=== PATIENT | female | born 1940 | race Caucasian/White ===

== ENCOUNTER → 2023-08-31 13:10 | Outpatient (REF) | payer OTHER, SELFPAY ==
[2023-08-31 13:40] LABS: Blood Urea Nitrogen 15 mg/dl (7-17); Calcium 8.6 mg/dl (8.4-10.2); Carbon Dioxide 27 mmol/L (22-30); Chloride 106 mmol/L (98-107); Glucose 136 mg/dl (70-99); Potassium 4.3 mmol/L (3.5-5.1); Sodium 136 mmol/L (135-145); eGFR > 60.00
[2023-08-31 13:45] LABS: Hematocrit 35.4 % (37.0-47.0); Hemoglobin 11.3 g/dL (12.0-16.0); Mean Corp Hgb Conc. 31.9 g/dL (33.0-37.0); Mean Corpuscular Hgb 29.9 pg (27.0-31.0); Mean Corpuscular Volume 93.7 fL (81.0-99.0); Mean Platelet Volume 11.8 fL (7.4-10.4); Platelet Count 238 10^3/uL (130-400); Red Blood Cell Count 3.78 10^6/uL (4.20-5.40); Red Cell Dist. Width 14.4 % (11.5-14.5); White Blood Cell Count 5.2 10^3/uL (4.8-10.8)
== END ==
LOC: OLABWHC 13:10
PROVIDERS: ATTENDING PHYSICIAN Family Medicine
DX: I63.9 Cerebral infarction, unspecified (principal); I69.354 Hemiplegia and hemiparesis following cerebral infarction affecting left non-dominant side; I10 Essential (primary) hypertension; Z79.3 Long term (current) use of hormonal contraceptives
CPT/HCPCS: 36415; 80048; 85027

== ENCOUNTER → 2023-09-09 11:04 | Outpatient (REF) | payer OTHER, SELFPAY ==
[2023-09-09 11:32] LABS: Hematocrit 33.6 % (37.0-47.0); Mean Corp Hgb Conc. 32.7 g/dL (33.0-37.0); Mean Corpuscular Hgb 29.3 pg (27.0-31.0); Mean Corpuscular Volume 89.6 fL (81.0-99.0); Mean Platelet Volume 11.7 fL (7.4-10.4); Platelet Count 278 10^3/uL (130-400); Red Blood Cell Count 3.75 10^6/uL (4.20-5.40); Red Cell Dist. Width 13.7 % (11.5-14.5); White Blood Cell Count 7.8 10^3/uL (4.8-10.8)
[2023-09-09 11:47] LABS: Blood Urea Nitrogen 18 mg/dl (7-17); Calcium 9.1 mg/dl (8.4-10.2); Carbon Dioxide 31 mmol/L (22-30); Chloride 95 mmol/L (98-107); Glucose 133 mg/dl (70-99); Potassium 4.5 mmol/L (3.5-5.1); Sodium 134 mmol/L (135-145); eGFR > 60.00
== END ==
LOC: OLABWHC 11:04
PROVIDERS: ATTENDING PHYSICIAN Family Medicine
DX: Z93.1 Gastrostomy status (principal); E66.9 Obesity, unspecified; E78.5 Hyperlipidemia, unspecified
CPT/HCPCS: 36415; 80048; 85027

== ENCOUNTER → 2023-09-16 09:33 | Outpatient (REF) | payer OTHER, SELFPAY ==
[2023-09-16 09:59] LABS: Hematocrit 35.2 % (37.0-47.0); Hemoglobin 11.5 g/dL (12.0-16.0); Mean Corp Hgb Conc. 32.7 g/dL (33.0-37.0); Mean Corpuscular Hgb 29.1 pg (27.0-31.0); Mean Corpuscular Volume 89.1 fL (81.0-99.0); Mean Platelet Volume 11.4 fL (7.4-10.4); Platelet Count 261 10^3/uL (130-400); Red Blood Cell Count 3.95 10^6/uL (4.20-5.40); Red Cell Dist. Width 13.7 % (11.5-14.5); White Blood Cell Count 8.2 10^3/uL (4.8-10.8)
[2023-09-16 11:02] LABS: ALT (SGPT) 21 U/L (0-35); AST (SGOT) 46 U/L (14-36); Albumin 3.2 g/dl (3.5-5.0); Alkaline Phosphatase 106 U/L (38-126); Blood Urea Nitrogen 15 mg/dl (7-17); Calcium 8.9 mg/dl (8.4-10.2); Carbon Dioxide 27 mmol/L (22-30); Chloride 101 mmol/L (98-107); Glucose 156 mg/dl (70-99); Potassium 4.1 mmol/L (3.5-5.1); Sodium 135 mmol/L (135-145); Total Bilirubin 0.6 mg/dl (0.2-1.3); Total Protein 6.6 g/dl (6.3-8.2); eGFR > 60.00
== END ==
LOC: OLABWHC 09:33
PROVIDERS: ATTENDING PHYSICIAN Family Medicine
DX: D64.9 Anemia, unspecified (principal); E66.9 Obesity, unspecified; Z93.1 Gastrostomy status
CPT/HCPCS: 36415; 80053; 85027

== ENCOUNTER 2023-09-17 17:24 | Emergency (ER) | payer OTHER, SELFPAY ==
[2023-09-17 17:41] VITALS: BP 130/75
[2023-09-17 17:42] VITALS: BP 130/75
--- NOTE | 2023-09-17 17:42 | ED.GENMED ---
History of Present Illness
General
Chief Complaint: Catheter/Tube Problem
Time Seen by Provider: 09/17/23 17:41
History of Present Illness
History of Present Illness:
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 She then had worsening hemorrhagic conversion but then 2 weeks later was placed on Eliquis
for A-fib. PEG tube was placed 08/05/2023.
EXAM:
GENERAL: The patient had a recent stroke
HEENT: Moist oral mucosa
CARDIOVASCULAR: No murmurs, normal heart rate and rhythm, No chest wall tenderness
PULMONARY: No respiratory distress, breath sounds are clear and equal
ABDOMEN: Soft with no peritoneal signs, no tenderness
NEUROLOGIC: Rightward gaze preference, she has left-sided weakness
PSYCHIATRIC: Fair insight and judgment but patient is a limited historian at times
EXTREMITIES: Nontender extremities
ED COURSE:
6 PM: I initially evaluated patient
NUMBER AND COMPLEXITY OF PROBLEMS ADDRESSED AT THE ENCOUNTER
� Chronic conditions affecting care: A-fib, high blood pressure, diabetes, hypothyroidism
� Acute Exacerbation and/or Progression of Chronic Illness: This is an acute problem
� Differential Diagnosis includes: Feeding tube dislodged
AMOUNT AND/OR COMPLEXITY OF DATA TO BE REVIEWED AND ANALYZED
� I performed an independent evaluation of and my interpretation is:
EKG:
CT:
X-rays: X-ray shows confirmation of good placement
Laboratory Studies:
Other:
� Review of other/old records: See HPI above
� Clinical information was obtained by an independent historian: I spoke to the nurse at [facility] who indicates the patient had a Armenian G-tube placed
� Prescriptions/Medications Considered but not given:
� Further testing considered but not performed:
RISK OF COMPLICATIONS AND/OR MORBIDITY OR MORTALITY OF PATIENT MANAGEMENT
� Social determinants of health affecting care: Currently staying at [facility]
� Discussion with other providers: I spoke to Dr. Bryan who feels that 6 weeks since original placement would be a reasonable timeframe to try placement here
� Escalation of care including admission/observation vs risk of discharge considered: 18 Armenian tube was placed without difficulty. Will discharge back to [facility] as of 7:20 PM
Past History
Past History
ED Past Medical History: NIDDM and Hypothyroidism
Social History
Personal: Single
Family History
Family History: Other
Phy Exam
Physical Exam
Physical Exam:
See HPI
Course
Orders/Labs/Results
Orders:
Orders
09/17/23 18:20
Tube Check [CR Cont Inj Eval Tube(by Rad)] Urgent
Comment:
Reason For Exam: replaced new G tube in ED
Vital Signs
Initial and Last Documented VS:
Initial Vital Signs
Temp Pulse Resp BP Pulse Ox
97.9 F 89 16 130/75 98
09/17/23 17:41 09/17/23 17:41 09/17/23 17:41 09/17/23 17:41 09/17/23 17:41
Last Documented Vital Signs
Temp Pulse Resp BP Pulse Ox
97.9 F 89 16 130/75 98
09/17/23 17:41 09/17/23 17:41 09/17/23 17:41 09/17/23 17:41 09/17/23 17:41
Procedures
Other
Indication for procedure:: Feeding tube dislodged
Procedure completed by: Id, Dr. Roman
Consent form signed: No
Additional Procedure:
Verbal consent obtained. An 18 Armenian tube was placed in 1 attempt without difficulty. Confirmation study shows good placement of tube.
*Critical Care Note
Total Time (30-74mins, 75-104mins- exclusive of procedures): Not Applicable
ED Attending Note
-
Portions of this chart may have been created with voice recognition software.� Occasional wrong word or��sound alike� substitutions may have occurred due to the inherent limitations of voice recognition software.
Discharge Plan
Departure
Patient Disposition: Home (Routine Discharge)
Date of Disposition: 09/17/23
Time of Disposition: 19:15
Patient with high blood pressure during this ER visit?: Yes
Discharge Problem:
Feeding tube dysfunction
Prescriptions:
No Action
sennosides [senna] 8.6 mg Tablet
8.6 mg feeding tube DAILY
magnesium hydroxide [Milk of Magnesia] 400 mg/5 mL Suspension
2,400 mg feeding tube HSPRN PRN (Reason: if no bm by 2nd day)
Fleet Enema 19-7 gram/118 mL Enema
118 ml AK Q96H PRN (Reason: if no bm by 4th day)
insulin lispro [Humalog KwikPen Insulin] 100 unit/mL Insulin Pen
0 unit SC QPM
Rx Instructions:
150-199=1unit, 200-249=3units, 250-299=5 units, 300-349=7units
Balmex Adult Care 11.3 % Cream
1 applic TOPICAL DAILYPRN PRN (Reason: aftr incontinet care)
Balmex Adult Care 11.3 % Cream
1 applic TOPICAL DAILY
acetaminophen 325 mg tablet
650 mg feeding tube Q6HPRN PRN (Reason: mild pain)
guaifenesin [Siltussin SA] 100 mg/5 mL liquid
200 mg feeding tube QID
Humulin N NPH Insulin KwikPen 100 unit/mL (3 mL) insulin pen
18 unit SC HS
melatonin 5 mg tablet
5 mg feeding tube HS
docusate sodium 50 mg/5 mL Liquid
100 mg feeding tube BID Qty: 473 0RF
ipratropium bromide 0.02 % Solution
0.5 mg inhalation R BIDPRN PRN (Reason: wheezing) Qty: 75 0RF
bisacodyl 10 mg Suppository
10 mg AK HSPRN PRN (Reason: if no BM with oral bisacodyl) Qty: 30 0RF
Eliquis 5 mg Tablet
5 mg feeding tube BID Qty: 60 0RF
atorvastatin 80 mg Tablet
80 mg feeding tube QPM Qty: 30 0RF
Humulin N NPH Insulin KwikPen 100 unit/mL (3 mL) Insulin Pen
12 unit SC DAILY@0730 Qty: 15 0RF
metoprolol tartrate 25 mg Tablet
25 mg feeding tube Q12 Qty: 30 0RF
sodium chloride 1,000 mg Tablet,Soluble
1,000 mg feeding tube DAILY Qty: 30 0RF
levothyroxine 50 mcg Tablet
50 mcg feeding tube DAILY@0700 Qty: 30 0RF
Referrals:
Davie Waldron MD [Family Provider] -
Activity Restrictions/Additional Instructions:
I placed an 18 Armenian tube and the contrast study shows that the tube is in good position for immediate use. Return here if worse.
Interventions
Interventions:
*Risk Screen - Suicide Last Done: 09/17/23 17:41
*General Assessment Last Done: 09/17/23 17:41
*Neglect/Abuse Screening Last Done: 09/17/23 17:41
*ED COVID-19 Vaccine History Last Done: 09/17/23 17:41
[2023-09-17 21:24] VITALS: BP 90/77
[2023-09-17 21:29] LABS: Glucose - Point of Care 154 mg/dl (70-99)
== END 2023-09-17 21:45 | disposition home or self-care (01) ==
LOC: EMR 17:24
PROVIDERS: EMERGENCY PHYSICIAN Emergency Medicine; FAMILY PHYSICIAN Family Medicine
DX: K94.23 Gastrostomy malfunction (principal); E11.9 Type 2 diabetes mellitus without complications; E03.9 Hypothyroidism, unspecified; I48.91 Unspecified atrial fibrillation; I10 Essential (primary) hypertension; Z86.73 Personal history of transient ischemic attack (TIA), and cerebral infarction without residual deficits; Z79.01 Long term (current) use of anticoagulants
CPT/HCPCS: 99284; 49465; 82962

== ENCOUNTER → 2023-10-26 09:34 | Outpatient (REF) | payer OTHER, SELFPAY | LOC: RAD 09:34 | PROVIDERS: ATTENDING PHYSICIAN Family Medicine | DX: R13.10 Dysphagia, unspecified (principal) | CPT/HCPCS: 74230; 92611 ==

== ENCOUNTER → 2023-10-26 11:46 | Outpatient (REF) | payer OTHER, SELFPAY ==
[2023-10-26 12:59] LABS: Blood Urea Nitrogen 12 mg/dl (7-17); Calcium 9.1 mg/dl (8.4-10.2); Carbon Dioxide 30 mmol/L (22-30); Chloride 103 mmol/L (98-107); Glucose 113 mg/dl (70-99); Potassium 4.1 mmol/L (3.5-5.1); Sodium 137 mmol/L (135-145); eGFR > 60.00
== END ==
LOC: OLABWHC 11:46
PROVIDERS: ATTENDING PHYSICIAN Family Medicine
DX: Z79.01 Long term (current) use of anticoagulants (principal); E78.5 Hyperlipidemia, unspecified
CPT/HCPCS: 36415; 80048

== ENCOUNTER → 2023-11-13 11:07 | Outpatient (REF) | payer OTHER, SELFPAY ==
[2023-11-13 11:26] LABS: Hematocrit 34.6 % (37.0-47.0); Hemoglobin 11.2 g/dL (12.0-16.0); Mean Corp Hgb Conc. 32.4 g/dL (33.0-37.0); Mean Corpuscular Hgb 27.8 pg (27.0-31.0); Mean Corpuscular Volume 85.9 fL (81.0-99.0); Mean Platelet Volume 10.5 fL (7.4-10.4); Platelet Count 251 10^3/uL (130-400); Red Blood Cell Count 4.03 10^6/uL (4.20-5.40); Red Cell Dist. Width 14.2 % (11.5-14.5); White Blood Cell Count 6.6 10^3/uL (4.8-10.8)
[2023-11-13 12:07] LABS: Blood Urea Nitrogen 11 mg/dl (7-17); Carbon Dioxide 27 mmol/L (22-30); Chloride 102 mmol/L (98-107); Glucose 151 mg/dl (70-99); Potassium 4.4 mmol/L (3.5-5.1); Sodium 136 mmol/L (135-145); eGFR > 60.00
== END ==
LOC: OLABWHC 11:07
PROVIDERS: ATTENDING PHYSICIAN Family Medicine
DX: Z93.1 Gastrostomy status (principal); D64.9 Anemia, unspecified; E11.9 Type 2 diabetes mellitus without complications
CPT/HCPCS: 36415; 80048; 85027

== ENCOUNTER → 2023-11-30 11:11 | Outpatient (REF) | payer OTHER, SELFPAY ==
[2023-11-30 11:45] LABS: Blood Urea Nitrogen 12 mg/dl (7-17); Calcium 9.1 mg/dl (8.4-10.2); Carbon Dioxide 30 mmol/L (22-30); Chloride 101 mmol/L (98-107); Glucose 149 mg/dl (70-99); Potassium 4.3 mmol/L (3.5-5.1); Sodium 139 mmol/L (135-145); eGFR > 60.00
== END ==
LOC: OLABWHC 11:11
PROVIDERS: ATTENDING PHYSICIAN Family Medicine
DX: I10 Essential (primary) hypertension (principal); E11.00 Type 2 diabetes mellitus with hyperosmolarity without nonketotic hyperglycemic-hyperosmolar coma (NKHHC)
CPT/HCPCS: 36415; 80048

== ENCOUNTER → 2024-04-20 13:10 | Outpatient (REF) | payer OTHER, SELFPAY ==
[2024-04-20 14:34] LABS: HDL Cholesterol 24 mg/dl; LDL Cholesterol, Calculated 99 mg/dl; Total Cholesterol 162 mg/dl (50-199); Triglyceride 197 mg/dl (10-149); Very Low Density Lipoprotein 39 mg/dl (0-30)
== END ==
LOC: OLABN 13:10
PROVIDERS: ATTENDING PHYSICIAN Student in an Organized Health Care Education/Training Program
DX: E78.5 Hyperlipidemia, unspecified (principal)
CPT/HCPCS: 36415; 80061

== ENCOUNTER → 2024-05-28 08:06 | Outpatient (REF) | payer OTHER, SELFPAY ==
[2024-05-28 10:37] LABS: % Basophils 0.4 % (0-2); % Eosinophils 0.6 % (0-6); % Immature Granulocytes 0.6 % (0-0.5); % Monocytes 9.2 % (1.7-9.3); % Neutrophils 73.2 % (42.2-75.2); Absolute Eosinophils 0.1 10^3/uL (0-0.7); Absolute Immature Granulocytes 0.1 10^3/uL (0-0.05); Absolute Lymphocytes 1.5 10^3/uL (1.2-3.4); Absolute Monocytes 0.8 10^3/uL (0.1-0.6); Absolute Neutrophils 6.6 10^3/uL (1.4-6.5); Hematocrit 37.1 % (37.0-47.0); Hemoglobin 12.6 g/dL (12.0-16.0); Mean Corpuscular Hgb 32.1 pg (27.0-31.0); Mean Corpuscular Volume 94.6 fL (81.0-99.0); Mean Platelet Volume 10.7 fL (7.4-10.4); Nucleated Red Blood Cells % 0 %; Platelet Count 191 10^3/uL (130-400); Red Blood Cell Count 3.92 10^6/uL (4.20-5.40); Red Cell Dist. Width 12.6 % (11.5-14.5)
[2024-05-28 10:45] LABS: ALT (SGPT) 23 U/L (0-35); AST (SGOT) 30 U/L (14-36); Albumin 3.6 g/dl (3.5-5.0); Alkaline Phosphatase 69 U/L (38-126); Blood Urea Nitrogen 19 mg/dl (7-17); Calcium 9.3 mg/dl (8.4-10.2); Carbon Dioxide 27 mmol/L (22-30); Chloride 107 mmol/L (98-107); Glucose 210 mg/dl (70-99); Magnesium 1.8 mg/dl (1.6-2.3); Potassium 4.5 mmol/L (3.5-5.1); Sodium 142 mmol/L (135-145); Total Bilirubin 0.6 mg/dl (0.2-1.3); Total Protein 6.5 g/dl (6.3-8.2); eGFR > 60.00
[2024-05-28 10:54] LABS: NT-proBNP 591 pg/ml
== END ==
LOC: OLABN 08:06
PROVIDERS: ATTENDING PHYSICIAN Student in an Organized Health Care Education/Training Program
DX: I48.91 Unspecified atrial fibrillation (principal)
CPT/HCPCS: 36415; 80053; 83735; 83880; 85025

== ENCOUNTER → 2024-08-09 10:17 | Outpatient (REF) | payer OTHER, SELFPAY ==
[2024-08-09 12:15] LABS: INR 1.23; PT 15.8 Sec (11.4-14.6)
== END ==
LOC: OLABN 10:17
PROVIDERS: ATTENDING PHYSICIAN Student in an Organized Health Care Education/Training Program
DX: I48.0 Paroxysmal atrial fibrillation (principal)
CPT/HCPCS: 36415; 85610

== ENCOUNTER → 2025-01-16 13:53 | Outpatient (REF) | payer OTHER, SELFPAY | LOC: RAD 13:53 | PROVIDERS: ATTENDING PHYSICIAN Specialist; FAMILY PHYSICIAN Student in an Organized Health Care Education/Training Program | DX: I63.312 Cerebral infarction due to thrombosis of left middle cerebral artery (principal) | CPT/HCPCS: 70450; 93880 ==

== ENCOUNTER → 2025-02-14 10:09 | Outpatient (REF) | payer OTHER, SELFPAY ==
[2025-02-14 10:53] LABS: Hematocrit 38.1 % (37.0-47.0); Hemoglobin 12.2 g/dL (12.0-16.0); Mean Corp Hgb Conc. 32.0 g/dL (33.0-37.0); Mean Corpuscular Volume 93.2 fL (81.0-99.0); Nucleated Red Blood Cells % 0 %; Platelet Count 166 10^3/uL (130-400); Red Cell Dist. Width 12.9 % (11.5-14.5)
[2025-02-14 11:02] LABS: ALT (SGPT) < 10 U/L (0-35); AST (SGOT) 29 U/L (14-36); Albumin 3.5 g/dl (3.5-5.0); Alkaline Phosphatase 49 U/L (38-126); Blood Urea Nitrogen 16 mg/dl (7-17); Calcium 9.0 mg/dl (8.4-10.2); Carbon Dioxide 28 mmol/L (22-30); Chloride 108 mmol/L (98-107); Glucose 66 mg/dl (70-99); Potassium 4.1 mmol/L (3.5-5.1); Sodium 141 mmol/L (135-145); Total Protein 6.3 g/dl (6.3-8.2); Uric Acid 4.7 mg/dl (2.5-6.2); eGFR > 60.00
== END ==
LOC: OLABN 10:09
PROVIDERS: ATTENDING PHYSICIAN Student in an Organized Health Care Education/Training Program
DX: M10.00 Idiopathic gout, unspecified site (principal)
CPT/HCPCS: 36415; 80053; 84550; 85025; 85652

== ENCOUNTER → 2025-04-12 09:22 | Outpatient (REF) | payer OTHER, SELFPAY ==
[2025-04-12 11:13] LABS: TSH 2.08 uIU/ml (0.47-4.68)
== END ==
LOC: OLABN 09:22
PROVIDERS: ATTENDING PHYSICIAN Student in an Organized Health Care Education/Training Program
DX: E03.9 Hypothyroidism, unspecified (principal)
CPT/HCPCS: 36415; 84443

== ENCOUNTER → 2025-05-14 09:05 | Outpatient (REF) | payer OTHER, SELFPAY ==
[2025-05-14 10:53] LABS: Hematocrit 37.5 % (37.0-47.0); Hemoglobin 11.8 g/dL (12.0-16.0); Mean Corp Hgb Conc. 31.5 g/dL (33.0-37.0); Mean Corpuscular Volume 98.2 fL (81.0-99.0); Platelet Count 175 10^3/uL (130-400); Red Cell Dist. Width 12.9 % (11.5-14.5)
[2025-05-14 10:58] LABS: Blood Urea Nitrogen 15 mg/dl (7-17); Calcium 8.9 mg/dl (8.4-10.2); Carbon Dioxide 29 mmol/L (22-30); Chloride 106 mmol/L (98-107); Glucose 126 mg/dl (70-99); Potassium 4.1 mmol/L (3.5-5.1); Sodium 134 mmol/L (135-145); eGFR > 60.00
== END ==
LOC: OLABN 09:05
PROVIDERS: ATTENDING PHYSICIAN Student in an Organized Health Care Education/Training Program
DX: R60.9 Edema, unspecified (principal)
CPT/HCPCS: 80048; 83880; 85027

== ENCOUNTER → 2025-05-22 12:57 | Outpatient (REF) | payer OTHER, SELFPAY ==
[2025-05-22 14:00] LABS: Blood Urea Nitrogen 15 mg/dl (7-17); Calcium 8.8 mg/dl (8.4-10.2); Carbon Dioxide 31 mmol/L (22-30); Chloride 107 mmol/L (98-107); Glucose 102 mg/dl (70-99); Potassium 4.1 mmol/L (3.5-5.1); Sodium 141 mmol/L (135-145); eGFR > 60.00
== END ==
LOC: OLABN 12:57
PROVIDERS: ATTENDING PHYSICIAN Student in an Organized Health Care Education/Training Program
DX: R60.9 Edema, unspecified (principal)
CPT/HCPCS: 36415; 80048